=== PATIENT | female | born 1995 | race African-American/Black ===

== ENCOUNTER 2020-04-17 11:16 | Inpatient (IN) ==
[2020-04-17] MEDS ORDERED: DINOPROSTONE 10 MG INSERT PV ONE (11:37)
[2020-04-17] MEDS ORDERED: OXYTOCIN 30 UNITS/500 ML BAG IV PRN (11:37)
[2020-04-17] MEDS ORDERED: LACTATED RINGER'S 1,000 ML IV PRN (11:37)
--- NOTE | 2020-04-17 12:09 | Obstetrical Progress Note ---
Date of Service April 17, 2020 Admit Note 24 F P0020 at 40.2 weeks admitted from office with BPP 4/8 and post-dates. Cervix closed and thick, vertex -3/ intact. GBS is negative. FHT Cat 1. Cervidil 10 mg placed vaginally for cervical ripening. EFW 7 lbs. Assessment & Plan Admission and Anticipated Discharge Date Admission Date: April 17, 2020 Results & Data ([facility]) Vital Signs (Past 12 Hours) Vital Signs Temp Pulse Resp BP 04/17/20 11:25 36.9 C 75 20 130/68
[2020-04-17 12:28] LABS: Hematocrit (blood only) 30.5 % (37-47); Hemoglobin 9.6 g/dL (12.0-16.0); Mean Corpuscular Hemoglobin 25.9 pg (25-34); Mean Corpuscular Volume 82.2 fL (80-100); Mean Platelet Volume 11.2 fL (7.4-10.4); Platelet Count 235 K/uL (130-400); RDW Standard Deviation 47.8 fL (36.4-46.3); Red Blood Count 3.71 M/uL (4.2-5.4); White Blood Count 11.51 K/uL (4.8-10.8)
[2020-04-17] MEDS ORDERED: CITRIC ACID/SODIUM CITRATE 15 ML UDC ONE (12:53)
[2020-04-17 12:54] LABS: Mean Corpuscular Hgb Conc 31.5 g/dL (32-36)
[2020-04-17] MEDS ORDERED: fentaNYL citrate 100 MCG/2 ML VIAL ONE ×2 (13:08→13:21)
[2020-04-17] MEDS ORDERED: CEFAZOLIN 250 MG/ML 1 GM VIAL ONE (13:16)
[2020-04-17] MEDS ORDERED: ONDANSETRON INJ 2 MG/ML 2 ML VIAL ONE (13:16)
[2020-04-17] MEDS ORDERED: OXYTOCIN 10 UNITS/ML VIAL ONE (13:16)
[2020-04-17] MEDS ORDERED: SUCCINYLCHOLINE 100MG/5ML SYR IV ONE (13:16)
[2020-04-17] MEDS ORDERED: DEXAMETHASONE SOD INJ 4 MG/ML VIAL ONE (13:16)
[2020-04-17] MEDS ORDERED: PROPOFOL IV EMULSION 10 MG/ML 20 ML VIAL IV ONE (13:16)
[2020-04-17] MEDS ORDERED: KETOROLAC 30 MG/ML VIAL ONE (13:20)
--- NOTE | 2020-04-17 13:40 | Post Operative Brief Note ---
Immediate Post Op Note v1 Date of Surgery April 17, 2020 Pre & Post Diagnosis non-reassuring heart tones persistent bradycardia I identified the patient and participated in the time-out.: Yes Procedure Primary section Surgeon Guille López MD Certified Residential Medication Aide Radha Solano MD Estimated Blood Loss 500 Findings Consistent with Post-Op Diagnosis Live male Apgars 7/9 weight 6lbs 15.5 oz. Fluids 1000 LR Drains Paulson Catheter Anesthesia Type General Complications none Disposition Accompanied Patient To Recovery: No Disposition: L&D Overlapping Procedure I was present for: the critical portions of procedure. I was immediately available: during the entire case. Back up surgeon: used during listed procedure.
--- NOTE | 2020-04-17 13:53 | Obstetrical Progress Note ---
Date of Service April 17, 2020 Assessment & Plan Admission and Anticipated Discharge Date Admission Date: April 17, 2020 Subjective I was called to se patient with bradycardia. Cervidil was removed. I checked patient and was still closed and elevated head to see if this alleviated the bradycardia. Slow return to normal but stat section called due to post-dates and non-reassuring heart tones. I obtained consent and explained to patient and spouse that we need to do this stat in order to deliver baby safely and expeditiously. Results & Data ([facility]) Vital Signs (Past 12 Hours) Vital Signs Temp Pulse Resp BP 04/17/20 12:42 80 118/69 04/17/20 11:25 36.9 C 75 20 130/68
[2020-04-17] MEDS ORDERED: ONDANSETRON INJ 2 MG/ML 2 ML VIAL IV PRN ×2 (13:58→14:13)
[2020-04-17] MEDS ORDERED: HYDROmorphone INJ 0.5 MG/0.5 ML SYR IV PRN (13:58)
--- NOTE | 2020-04-17 14:03 | Anesthesiology Progress Note ---
Date of Service April 17, 2020 Anesthesia Post Procedure Vital Signs Vital Signs: Temp Pulse Resp BP Pulse Ox 04/17/20 14:01 65 100 04/17/20 13:56 59 L 100 04/17/20 13:51 66 124/78 100 04/17/20 12:42 80 118/69 04/17/20 11:25 36.9 C 75 20 130/68 Transfer of Care Handoff Completed per policy Notes Mental Status: alert / awake / arousable and participated in evaluation Patient Amnestic to Procedure: Yes Nausea / Vomiting: adequately controlled Pain: adequately controlled Airway Patency, RR, SpO2: stable & adequate BP & HR: stable & adequate Hydration State: stable & adequate Anesthetic Complications: no major complications apparent and Pt Satisfied with anesthetic care
[2020-04-17] MEDS ORDERED: HYDROCORTISONE ACETATE 25 MG SUPP PR PRN (14:13)
[2020-04-17] MEDS ORDERED: PROMETHAZINE HCL 25 MG in SODIUM CHLORIDE 0.9% 50 ML IV PRN (14:13)
[2020-04-17] MEDS ORDERED: MAGNESIUM HYDROXIDE SUSP 30 ML UDC PO PRN (14:13)
[2020-04-17] MEDS ORDERED: OXYTOCIN 30 UNITS in LACTATED RINGER'S 1,000 ML IV SCH (14:13)
[2020-04-17] MEDS ORDERED: SUPERCREAM 0.870% 15 GM JAR EXT PRN (14:13)
[2020-04-17] MEDS ORDERED: BENZOCAINE 20% AER SPR 82.5 GM CAN EXT PRN (14:13)
[2020-04-17] MEDS ORDERED: DIPHTHERIA/TETANUS/PERTUSSIS 0.5 ML SYR/VIAL IM ONE (14:13)
[2020-04-17] MEDS ORDERED: DiphenhydrAMINE HCL 50 MG/ML VIAL IV PRN (14:13)
[2020-04-17] MEDS ORDERED: MEPERIDINE HCL 50 MG/ML CARP IV PRN (14:13)
[2020-04-17] MEDS ORDERED: SENNA 8.6 MG TAB PO PRN (14:13)
[2020-04-17 14:15] LABS: Base Excess Cord Arterial Bld -3.3 mEq/L (-9-1.8); CO2 Cord Arterial Blood 66 mmHg (39.1-73.5); Cord Venous Blood HCO3 22 mmol/L (18.4-26.8); Cord Venous Blood PCO2 48 mmHg (30.4-57.2); Cord Venous Blood PO2 39 mmHg (14.1-43.3); Cord Venous Blood pH 7.28 (7.20-7.44); HCO3 Cord Arterial Blood 26 mmol/L (19.7-28.5); PO2 Cord Arterial Blood 33 mmHg (4.1-31.7); pH Cord Arterial Blood 7.22 (7.1-7.38)
[2020-04-17] MEDS: HYDROmorphone INJ 1 MG/ML SYRINGE IV PRN ×3 (14:19→16:06)
[2020-04-17] MEDS: SIMETHICONE 80 MG CHEW PO SCH ×2 (18:30→21:07)
[2020-04-17] MEDS: DOCUSATE SODIUM 100 MG CAP PO SCH (21:06)
[2020-04-17] MEDS: KETOROLAC 30 MG/ML VIAL IV PRN (22:11)
[2020-04-17] MEDS ORDERED: LACTATED RINGER'S 1,000 ML IV SCH (23:00)
--- NOTE | 2020-04-18 02:37 | Operative Report (OR) ---
DATE OF OPERATION: 04/17/2020 PREOPERATIVE DIAGNOSIS: Nonreassuring heart tones, persistent tachycardia. POSTOPERATIVE DIAGNOSIS: Nonreassuring heart tones, persistent tachycardia. PROCEDURE: Primary section, low segment, transverse. SURGEON: Guille López MD SURGEON: Alexandra Solano MD ESTIMATED BLOOD LOSS: 500 mL. FINDINGS: Live male, Apgars 7 and 9, weight 6 pounds 15-1/2 ounces. FLUIDS: 1000 mL of LR. DRAINS: Paulson. ANESTHESIA: General. COMPLICATIONS: None. CLINICAL HISTORY: The patient is a 24-year-old female who was admitted to labor and delivery for induction after the patient had a biophysical profile done today in the office that was 4 out of 8 and low fluid. The patient was started on Cervidil for cervical ripening and after approximately 45 minutes on the monitor and even before, started having decelerations progressing to bradycardia. She was brought back to the OR for a stat section. She was identified prior to the start of the procedure, timeout was called prior to the start of the anesthesia, and she was given antibiotics preop in the OR. DESCRIPTION OF PROCEDURE: After satisfactory general anesthesia after the patient was properly prepped and draped prior to the induction of anesthesia, a low Pfannenstiel incision was made entering into the abdominal cavity in successive layers without difficulty. Pickups with teeth were used to develop a bladder flap, blunt dissection into the peritoneal cavity. The incision was widened in the AP diameter. A low segment transverse incision over the lower uterine segment was made. The infant was then delivered with the aid of fundal pressure noted with thick meconium fluid. The infant was then delivered with fundal pressure, vertex presentation. The cord was doubly clamped and cut and a segment of cord was obtained for blood gases. Apgars were 7 and 9. weight was 6 pounds 15-1/2 ounces. Cord blood was obtained. Placenta was then delivered spontaneously and intact, submitted to pathology as a separate specimen. Uterus was then exteriorized. Ring forceps were then placed on both angles in the inferior margin. Pitocin was started in the IV. Uterus firmed up. Uterus was cleared of all clots and debris with a clean lap pad. Uterus was closed in a double layered closure with 0 Vicryl suture in a continuous interlocking fashion followed by a second imbricating suture of 0 Vicryl suture. Tubes and ovaries bilaterally were found to be within normal limits. The contents of the pelvic and abdominal cavity were irrigated to clear. No active bleeding was noted. Uterus was placed back. The lower uterine segment was once more inspected and no active bleeding was noted. Fascia was reapproximated from both ends using 0 Vicryl suture in a continuous fashion. Subcutaneous layer was then irrigated and closed with 0 Vicryl suture continuous and then the skin was then reapproximated with bianca. Clear urine was noted from the Paulson. Estimated blood loss was 500 mL The final sponge, needle, and instrument counts were found to be correct. The patient was then taken to recovery room in stable condition. I attest to the content of the Intraoperative Record and any orders documented therein. Any exception s are noted below.
[2020-04-18] MEDS: KETOROLAC 30 MG/ML VIAL IV PRN (04:24)
[2020-04-18 06:57] LABS: Basophils # (auto) 0.01 K/uL (0-0.2); Basophils % (auto) 0.1 %; Eosinophils # (auto) 0.01 K/uL (0-0.5); Eosinophils % (auto) 0.1 %; Hematocrit (blood only) 29.5 % (37-47); Immature Granulocytes # (auto) 0.07 K/uL (0.00-0.02); Immature Granulocytes % (auto) 0.4 %; Lymphocytes # (auto) 1.84 K/uL (1.2-3.4); Lymphocytes % (auto) 10.3 %; Mean Corpuscular Hemoglobin 25.4 pg (25-34); Mean Corpuscular Hgb Conc 30.5 g/dL (32-36); Mean Corpuscular Volume 83.3 fL (80-100); Mean Platelet Volume 11.3 fL (7.4-10.4); Monocytes # (auto) 1.57 K/uL (0.11-0.59); Monocytes % (auto) 8.8 %; Neutrophils % (auto) 80.3 %; Platelet Count 246 K/uL (130-400); RDW Standard Deviation 48.7 fL (36.4-46.3); Red Blood Count 3.54 M/uL (4.2-5.4)
[2020-04-18] MEDS: DOCUSATE SODIUM 100 MG CAP PO SCH ×2 (08:19→21:11)
[2020-04-18] MEDS: SIMETHICONE 80 MG CHEW PO SCH ×4 (08:20→21:11)
[2020-04-18] MEDS: IBUPROFEN 600 MG TAB PO PRN ×4 (08:20→22:39)
[2020-04-18] MEDS: PRENATAL VITAMIN 1 TAB PO SCH (08:20)
[2020-04-18] MEDS: FERROUS SULFATE 325 MG TAB PO SCH (08:20)
[2020-04-18] MEDS: OXYCODONE/ACETAMINOPHEN 5mg/325mg TAB PO PRN ×3 (08:21→22:40)
--- NOTE | 2020-04-18 08:26 | Obstetrical Progress Note ---
Date of Service April 18, 2020 Assessment & Plan Admission and Anticipated Discharge Date Admission Date: April 17, 2020 Subjective Patient is seen and examined. She feels well, no complaints. Pain is under control with oral meds. Ambulated once without dizziness Has not Voided yet Tolerating regular diet with out N&V Flatus + BM neg Bleeding is minimal No fever/ chills/ CP/ SOB/ N&V/ Leg pain Breast feeding without problems Vital Signs Temp Pulse Pulse Resp BP BP Pulse Ox 04/18/20 07:37 36.8 C 65 20 111/72 04/18/20 03:05 36.8 C 73 18 110/70 98 04/17/20 23:00 36.8 C 79 18 121/75 99 04/17/20 19:15 36.9 C 66 18 134/82 97 04/17/20 16:30 36.7 C 65 16 119/81 98 04/17/20 16:17 60 20 99 04/17/20 16:06 58 L 99 04/17/20 16:05 57 L 141/76 H 04/17/20 16:01 65 100 04/17/20 15:56 74 99 04/17/20 15:55 66 133/62 04/17/20 15:51 64 99 04/17/20 15:46 58 L 99 04/17/20 15:44 57 L 134/91 04/17/20 15:41 56 L 99 04/17/20 15:36 56 L 99 04/17/20 15:34 67 134/85 04/17/20 15:31 59 L 100 04/17/20 15:26 62 98 04/17/20 15:24 59 L 136/81 04/17/20 15:21 62 20 136/81 98 04/17/20 15:16 67 100 04/17/20 15:14 56 L 134/80 04/17/20 15:11 61 98 04/17/20 15:06 67 98 04/17/20 15:05 69 128/76 04/17/20 15:01 66 99 04/17/20 14:56 56 L 99 04/17/20 14:55 57 L 137/83 04/17/20 14:51 36.4 C L 66 22 137/83 99 04/17/20 14:46 60 99 04/17/20 14:45 72 143/80 H 05/29/20 14:44 67 16 04/17/20 14:41 74 20 99 04/17/20 14:36 64 100 04/17/20 14:35 60 138/83 04/17/20 14:31 63 100 04/17/20 14:26 59 L 100 04/17/20 14:25 56 L 140/89 04/17/20 14:24 60 18 04/17/20 14:21 58 L 04/17/20 14:16 62 100 04/17/20 14:14 54 L 131/84 04/17/20 14:11 59 L 20 04/17/20 14:06 61 100 04/17/20 14:04 62 129/83 04/17/20 14:01 36.4 C L 58 L 19 04/17/20 13:56 59 L 04/17/20 13:51 36.0 C L 66 124/78 04/17/20 12:42 80 118/69 04/17/20 11:25 36.9 C 75 20 130/68 Intake and Output 04/17/20 04/18/20 04/18/20 22:59 06:59 14:59 Intake Total 1243 / 3115 872 / 3115 Output Total 950 / 2400 1350 / 2400 Balance 293 / 715 -478 / 715 Intake: IV 1003 / 1875 872 / 1875 Lr 1,000 ml @ 125 mls/hr IV . 872 / 872 Q8H KACEY Rx#:[id number] Pitocin 30 Units In Lr 1,000 ml 1003 / 1003 @ 125 mls/hr IV .Q8H2M KACEY Rx# :[id number] Oral 240 / 240 Output: Urine Amount (Catheter) 950 / 2400 1350 / 2400 Paulson/Indwelling 950 / 2400 1350 / 2400 Lab Results 04/17/20 04/17/20 04/17/20 Range/Units 11:44 13:03 13:03 WBC 11.51 H (4.8-10.8) K/uL RBC 3.71 L (4.2-5.4) M/uL Hgb 9.6 L (12.0-16.0) g/dL Hct 30.5 L (37-47) % MCV 82.2 (80-100) fL MCH 25.9 (25-34) pg MCHC 31.5 L (32-36) g/dL RDW Std Deviation 47.8 H (36.4-46.3) fL RDW Coeff of Aleshia 16.0 H (11.5-14.5) % Plt Count 235 (130-400) K/uL MPV 11.2 H (7.4-10.4) fL Immature Gran % (Auto) % Neut % (Auto) % Lymph % (Auto) % [place] % (Auto) % Eos % (Auto) % Baso % (Auto) % Immature Gran # (Auto) (0.00-0.02) K/uL Neut # (Auto) (1.4-6.5) K/uL Lymph # (Auto) (1.2-3.4) K/uL [place] # (Auto) (0.11-0.59) K/uL Eos # (Auto) (0-0.5) K/uL Baso # (Auto) (0-0.2) K/uL Cord ABG pH 7.22 (7.1-7.38) Cord ABG pCO2 66 (39.1-73.5) mmHg Cord ABG pO2 33 H (4.1-31.7) mmHg Cord ABG HCO3 26 (19.7-28.5) mmol/L Cord ABG Base Excess -3.3 (-9-1.8) mEq/L Cord ABG O2 Sat 64.0 H (<60) % Cord VBG pH 7.28 (7.20-7.44) Cord VBG pCO2 48 (30.4-57.2) mmHg Cord VBG pO2 39 (14.1-43.3) mmHg Cord VBG HCO3 22 (18.4-26.8) mmol/L Cord VBG Base Excess -5.0 (-7.7-1.9) mEq/L Cord VBG O2 Sat 75.0 H (<68) % Barometric Pressure 729.3 729.3 mm/Hg Blood Gas Comments MUHAMMAD MUHAMMAD 04/18/20 Range/Units 06:28 WBC 17.80 H (4.8-10.8) K/uL RBC 3.54 L (4.2-5.4) M/uL Hgb 9.0 L (12.0-16.0) g/dL Hct 29.5 L (37-47) % MCV 83.3 (80-100) fL MCH 25.4 (25-34) pg MCHC 30.5 L (32-36) g/dL RDW Std Deviation 48.7 H (36.4-46.3) fL RDW Coeff of Aleshia 16.0 H (11.5-14.5) % Plt Count 246 (130-400) K/uL MPV 11.3 H (7.4-10.4) fL Immature Gran % (Auto) 0.4 % Neut % (Auto) 80.3 % Lymph % (Auto) 10.3 % [place] % (Auto) 8.8 % Eos % (Auto) 0.1 % Baso % (Auto) 0.1 % Immature Gran # (Auto) 0.07 H (0.00-0.02) K/uL Neut # (Auto) 14.30 H (1.4-6.5) K/uL Lymph # (Auto) 1.84 (1.2-3.4) K/uL [place] # (Auto) 1.57 H (0.11-0.59) K/uL Eos # (Auto) 0.01 (0-0.5) K/uL Baso # (Auto) 0.01 (0-0.2) K/uL Cord ABG pH (7.1-7.38) Cord ABG pCO2 (39.1-73.5) mmHg Cord ABG pO2 (4.1-31.7) mmHg Cord ABG HCO3 (19.7-28.5) mmol/L Cord ABG Base Excess (-9-1.8) mEq/L Cord ABG O2 Sat (<60) % Cord VBG pH (7.20-7.44) Cord VBG pCO2 (30.4-57.2) mmHg Cord VBG pO2 (14.1-43.3) mmHg Cord VBG HCO3 (18.4-26.8) mmol/L Cord VBG Base Excess (-7.7-1.9) mEq/L Cord VBG O2 Sat (<68) % Barometric Pressure mm/Hg Blood Gas Comments PE: General: Alert, orientedx3, NAD CVS: S1S2 RRR Lungs; CTAB Abd: soft, NT, ND, BS+, fundus firm, below Umbilicus Dressing: Clean, dry, intact Perineum intact, Lochia rubra minimal Ext; NT, no edema AP: 24 yo s/p emergency C Section, pod# 1 VSS Afebrile doing well Continue routine postop care Encourage ambulation, PO intake All questions were answered Results & Data ([facility]) Vital Signs (Past 12 Hours) Vital Signs Temp Pulse Resp BP Pulse Ox 04/18/20 07:37 36.8 C 65 20 111/72 04/18/20 03:05 36.8 C 73 18 110/70 98 04/17/20 23:00 36.8 C 79 18 121/75 99
[2020-04-18] MEDS ORDERED: NON-FORMULARY MEDICATION (Pnv Cmb#95-Ferrous Fumarate-Fa [Prenatal] 1 TAB) PO SCH (09:00)
[2020-04-18] MEDS ORDERED: NON-FORMULARY MEDICATION (Ferrous Sulfate [Iron] 325 MG) PO SCH (09:00)
[2020-04-18] MEDS ORDERED: COUGH DROP (SUGAR FREE) LOZ 24 LOZ/1 BOX BUCCAL ONE (15:18)
[2020-04-18] MEDS ORDERED: CHLORASEPTIC 1.4% SOLN 180 ML BTL MT PRN (17:33)
[2020-04-18] MEDS ORDERED: bisacodyL 5 MG TABEC PO SCH (20:00)
[2020-04-19] MEDS: IBUPROFEN 600 MG TAB PO PRN ×3 (02:54→14:16)
[2020-04-19 06:06] LABS: Basophils # (auto) 0.01 K/uL (0-0.2); Basophils % (auto) 0.1 %; Eosinophils # (auto) 0.15 K/uL (0-0.5); Eosinophils % (auto) 1.3 %; Hemoglobin 8.8 g/dL (12.0-16.0); Immature Granulocytes # (auto) 0.09 K/uL (0.00-0.02); Immature Granulocytes % (auto) 0.8 %; Lymphocytes # (auto) 3.42 K/uL (1.2-3.4); Lymphocytes % (auto) 29.1 %; Mean Corpuscular Hemoglobin 26.3 pg (25-34); Mean Corpuscular Hgb Conc 31.4 g/dL (32-36); Mean Corpuscular Volume 83.6 fL (80-100); Mean Platelet Volume 10.3 fL (7.4-10.4); Monocytes # (auto) 1.12 K/uL (0.11-0.59); Monocytes % (auto) 9.5 %; Neutrophils # (auto) 6.98 K/uL (1.4-6.5); Neutrophils % (auto) 59.2 %; Platelet Count 220 K/uL (130-400); RDW Coefficient of Variation 16.1 % (11.5-14.5); RDW Standard Deviation 49.3 fL (36.4-46.3); Red Blood Count 3.35 M/uL (4.2-5.4); White Blood Count 11.77 K/uL (4.8-10.8)
[2020-04-19] MEDS: OXYCODONE/ACETAMINOPHEN 5mg/325mg TAB PO PRN (06:20)
[2020-04-19] MEDS: SIMETHICONE 80 MG CHEW PO SCH ×2 (09:08→12:01)
[2020-04-19] MEDS: PRENATAL VITAMIN 1 TAB PO SCH (09:09)
[2020-04-19] MEDS: DOCUSATE SODIUM 100 MG CAP PO SCH (09:09)
[2020-04-19] MEDS: FERROUS SULFATE 325 MG TAB PO SCH (09:09)
--- NOTE | 2020-04-19 10:38 | Obstetrical Progress Note ---
Date of Service April 19, 2020 Assessment & Plan Admission and Anticipated Discharge Date Admission Date: April 17, 2020 Subjective Patient is seen and examined. She feels well, no complaints. Likes to be discharged. Pain is under control with oral meds. Ambulating without dizziness Voiding without difficulty Tolerating regular diet with out N&V Flatus none BM none Bleeding is minimal No fever/ chills/ CP/ SOB/ N&V/ Leg pain Breast feeding without problems Vital Signs Temp Pulse Resp BP Pulse Ox 04/18/20 23:20 36.7 C 73 20 120/74 99 04/18/20 20:40 36.7 C 80 18 111/69 04/18/20 16:20 37.2 C 68 18 112/70 04/18/20 11:15 36.7 C 70 20 104/63 Intake and Output 04/18/20 04/19/20 04/19/20 22:59 06:59 14:59 Output Total 650 / 1150 Balance -650 / -1150 Output: Urine 650 / 1150 Lab Results 04/17/20 04/17/20 04/17/20 Range/Units 11:44 13:03 13:03 WBC 11.51 H (4.8-10.8) K/uL RBC 3.71 L (4.2-5.4) M/uL Hgb 9.6 L (12.0-16.0) g/dL Hct 30.5 L (37-47) % MCV 82.2 (80-100) fL MCH 25.9 (25-34) pg MCHC 31.5 L (32-36) g/dL RDW Std Deviation 47.8 H (36.4-46.3) fL RDW Coeff of Aleshia 16.0 H (11.5-14.5) % Plt Count 235 (130-400) K/uL MPV 11.2 H (7.4-10.4) fL Immature Gran % (Auto) % Neut % (Auto) % Lymph % (Auto) % [place] % (Auto) % Eos % (Auto) % Baso % (Auto) % Immature Gran # (Auto) (0.00-0.02) K/uL Neut # (Auto) (1.4-6.5) K/uL Lymph # (Auto) (1.2-3.4) K/uL [place] # (Auto) (0.11-0.59) K/uL Eos # (Auto) (0-0.5) K/uL Baso # (Auto) (0-0.2) K/uL Cord ABG pH 7.22 (7.1-7.38) Cord ABG pCO2 66 (39.1-73.5) mmHg Cord ABG pO2 33 H (4.1-31.7) mmHg Cord ABG HCO3 26 (19.7-28.5) mmol/L Cord ABG Base Excess -3.3 (-9-1.8) mEq/L Cord ABG O2 Sat 64.0 H (<60) % Cord VBG pH 7.28 (7.20-7.44) Cord VBG pCO2 48 (30.4-57.2) mmHg Cord VBG pO2 39 (14.1-43.3) mmHg Cord VBG HCO3 22 (18.4-26.8) mmol/L Cord VBG Base Excess -5.0 (-7.7-1.9) mEq/L Cord VBG O2 Sat 75.0 H (<68) % Barometric Pressure 729.3 729.3 mm/Hg Blood Gas Comments MUHAMMAD MUHAMMAD 04/18/20 04/19/20 Range/Units 06:28 05:51 WBC 17.80 H 11.77 H (4.8-10.8) K/uL RBC 3.54 L 3.35 L (4.2-5.4) M/uL Hgb 9.0 L 8.8 L (12.0-16.0) g/dL Hct 29.5 L 28.0 L (37-47) % MCV 83.3 83.6 (80-100) fL MCH 25.4 26.3 (25-34) pg MCHC 30.5 L 31.4 L (32-36) g/dL RDW Std Deviation 48.7 H 49.3 H (36.4-46.3) fL RDW Coeff of Aleshia 16.0 H 16.1 H (11.5-14.5) % Plt Count 246 220 (130-400) K/uL MPV 11.3 H 10.3 (7.4-10.4) fL Immature Gran % (Auto) 0.4 0.8 % Neut % (Auto) 80.3 59.2 % Lymph % (Auto) 10.3 29.1 % [place] % (Auto) 8.8 9.5 % Eos % (Auto) 0.1 1.3 % Baso % (Auto) 0.1 0.1 % Immature Gran # (Auto) 0.07 H 0.09 H (0.00-0.02) K/uL Neut # (Auto) 14.30 H 6.98 H (1.4-6.5) K/uL Lymph # (Auto) 1.84 3.42 H (1.2-3.4) K/uL [place] # (Auto) 1.57 H 1.12 H (0.11-0.59) K/uL Eos # (Auto) 0.01 0.15 (0-0.5) K/uL Baso # (Auto) 0.01 0.01 (0-0.2) K/uL Cord ABG pH (7.1-7.38) Cord ABG pCO2 (39.1-73.5) mmHg Cord ABG pO2 (4.1-31.7) mmHg Cord ABG HCO3 (19.7-28.5) mmol/L Cord ABG Base Excess (-9-1.8) mEq/L Cord ABG O2 Sat (<60) % Cord VBG pH (7.20-7.44) Cord VBG pCO2 (30.4-57.2) mmHg Cord VBG pO2 (14.1-43.3) mmHg Cord VBG HCO3 (18.4-26.8) mmol/L Cord VBG Base Excess (-7.7-1.9) mEq/L Cord VBG O2 Sat (<68) % Barometric Pressure mm/Hg Blood Gas Comments PE: General: Alert, orientedx3, NAD CVS: S1S2 RRR Lungs; CTAB Abd: soft, NT, ND, BS+, fundus firm, below Umbilicus Incision/ bianca: Clean, dry, intact Perineum intact, Lochia rubra minimal Ext; NT, no edema AP: 24 yo s/p C Section, pod# 2 VSS Afebrile doing well Continue routine postop care Encourage ambulation, PO intake All questions were answered Discussed when to call D/C home after bowel fx this evening Results & Data ([facility]) Vital Signs (Past 12 Hours) Vital Signs Temp Pulse Resp BP Pulse Ox 04/18/20 23:20 36.7 C 73 20 120/74 99
[2020-04-19] MEDS ORDERED: bisacodyL 10 MG SUPP PR ONE ×2 (11:40→11:58)
[2020-04-19] MEDS ORDERED: bisacodyL 10 MG SUPP PR PRN (13:44)
[2020-04-19] MEDS ORDERED: FERROUS SULFATE 325 MG TAB PO SCH (21:00)
--- NOTE | 2020-04-27 10:06 | Discharge Summary (DS) ---
REASON FOR ADMISSION: The patient is a 24-year-old female admitted to labor and delivery for induction. The patient had a biophysical in the office which was 4/8 with low fluid. She was brought to the labor room where she was induced. She received 1 dose of Cervidil and within 40 minutes, she began having persistent bradycardia with decelerations. She was brought back to the OR for stat section due to prolonged bradycardia. section was done under general anesthesia delivering a live , Apgars were 7 and 9. weight was 6 pounds 15-1/2 ounces. Hospital course was unremarkable. The patient was then subsequently discharged on 04/19/2020 in stable condition. Home going instructions were given. CONDITION ON DISCHARGE: Stable. MEDICATIONS: Include Motrin and Percocet. Follow up will be in the office for an incision check in a week.
== END 2020-04-19 14:50 | disposition home or self-care (01) | DRG 788 ==
LOC: 4S1 11:16 → 4S2 16:34